=== PATIENT | male | born 1965 | race Caucasian/White ===

== ENCOUNTER → 2024-09-09 14:12 | Outpatient (REF) | payer BC, SELFPAY | LOC: RAD 14:12 | PROVIDERS: ATTENDING PHYSICIAN Surgery Vascular Surgery | DX: I73.9 Peripheral vascular disease, unspecified (principal) | CPT/HCPCS: 93922; 93925 ==

== ENCOUNTER 2024-12-08 12:00 | Emergency (ER) | payer BC, SELFPAY ==
[2024-12-08 12:01] VITALS: BP 129/85
--- NOTE | 2024-12-08 12:47 | ED.GENMED ---
History of Present Illness
General
Chief Complaint: Abdominal Pain
Source: patient
Exam Limitations: none
Time Seen by Provider: 12/08/24 12:43
History of Present Illness
History of Present Illness:
See MDM
Past History
Past History
ED Past Medical History: CVA, HTN, Hypercholesterolemia and IDDM
ED Past Surgical History: None
Social History
Tobacco: Smoker
Alcohol: None
Drug: None
Personal:
Living: with family
Employment: Employed
Family History
Family History: Hypertension
Phy Exam
Physical Exam
Physical Exam:
See MDM
Course
Orders/Labs/Results
Orders:
Orders
12/08/24 12:05
Scrotum US [US Scrotum] Urgent
Comment:
Reason For Exam: pain
12/08/24 12:46
CT Abd/pelvis W Iv Cont Urgent
Comment:
Reason For Exam: R groin pain
12/08/24 13:22
Complete Blood Count/With Diff Urgent
Comprehensive Metabolic Panel Urgent
Abnormal Lab Results
12/08/24
13:22
WBC 11.8 H 10^3/uL
(4.8-10.8)
RBC 4.39 L 10^6/uL
(4.70-6.10)
MCH 31.4 H pg
(27.0-31.0)
Abs Immat Gran (auto) 0.1 H 10^3/uL
(0-0.05)
Absolute Neuts (auto) 8.5 H 10^3/uL
(1.4-6.5)
Absolute Monos (auto) 1.2 H 10^3/uL
(0.1-0.6)
Lymphocytes % 16.1 L %
(20.5-51.1)
Monocytes % 9.7 H %
(1.7-9.3)
Carbon Dioxide 34 H mmol/L
(22-30)
Glucose 385 H mg/dl
(70-99)
Alkaline Phosphatase 158 H U/L
(38-126)
12/08/24 13:22
12/08/24 13:22
Vital Signs
Initial and Last Documented VS:
Initial Vital Signs
Temp Pulse Resp BP Pulse Ox
98.6 F 106 20 129/85 98
12/08/24 12:01 12/08/24 12:01 12/08/24 12:01 12/08/24 12:01 12/08/24 12:01
Last Documented Vital Signs
Temp Pulse Resp BP Pulse Ox
98.6 F 106 20 129/85 98
12/08/24 12:01 12/08/24 12:01 12/08/24 12:01 12/08/24 12:01 12/08/24 12:01
MDM/Problems Addressed
Differential Diagnosis Includes:
HPI and MDM Narrative:
59-year-old male presenting with right groin pain. It appears that this been going on for about 8 weeks. Certain positions when he lays down makes it better or worse. He denies urinary symptoms or issues with defecation. Given duration of
symptoms, will obtain scrotal ultrasound and CT. There is concern for epididymitis versus inguinal hernia
Physical exam
General: Well appearing and non-toxic
HEENT: protecting airway
Neck: appears supple
CV: No evidence of cyanosis
Resp: No accessory muscle use
Abd: Non-distended. Very mild right groin tenderness. No rebound. No palpable hernia
: Mild tenderness to right epididymis. Cremasteric reflex intact. No edema or erythema noted
Extremities: No deformities
Neuro: alert
Psych: Normal affect
Skin: Intact
Problems Addressed including Acute and Chronic Conditions affecting care:
1. Right groin pain
Acuity: acute
Prognosis: stable
Details: Given duration of symptoms, will obtain ultrasound to rule out epididymitis and will obtain CT to rule out kidney stone versus inguinal hernia
Updates
Ultrasound negative. Patient hyperglycemic but has a history of diabetes. No evidence of DKA. CT concerning for metastatic pancreatic cancer. I had a long discussion with the patient and . Patient indicates that he cannot get an MRI due to
metal in his body. Case discussed with oncology who indicated that he may not need an MRI. He may just need a liver biopsy. Discussed the importance of follow-up PCP and better sugar control and calling oncology
Differential Diagnosis (but not limited to): Epididymitis, inguinal hernia, kidney stone
Testing considered: Abdominal x-ray
Drug therapy (if applicable): OTC meds, please see d/c instruction regarding Rx drugs
Amount and/or Complexity of Data Reviewed
Clinical info obtained from: Patient
External data reviewed: N/A
Labs I independently reviewed (but not limited to): Hyperglycemia
Radiology: The CT scan was personally and independently reviewed. In addition, official CT report reviewed.
Pulse Ox: not hypoxic
EKG independently reviewed: N/A
Political Director: N/A
Critical Care: N/A
Risk of Complication:
Social Determinants of health: Good social support
Discussed with other providers: Oncology
Escalation of Care includes Admit/Obs: After being observed in the Emergency Department, pt stable for discharge.
Occasional wrong word or 'sound a like' substitutions may have occurred due to the inherent limitations of voice recognition software. Read the chart carefully and recognize, using context, where substitutions have occurred.
*Critical Care Note
Total Time (30-74mins, 75-104mins- exclusive of procedures): Not Applicable
ED Attending Note
-
Portions of this chart may have been created with voice recognition software.� Occasional wrong word or��sound alike� substitutions may have occurred due to the inherent limitations of voice recognition software.
Discharge Plan
Departure
Patient Disposition: Home (Routine Discharge)
Date of Disposition: 12/08/24
Time of Disposition: 19:11
Patient with high blood pressure during this ER visit?: No
Discharge Problem:
Pancreatic mass
Prescriptions:
No Action
ezetimibe 10 MG tablet
10 mg PO DAILY
aspirin 81 MG tablet,delayed release (DR/EC)
81 mg PO DAILY Qty: 30 0RF
cholecalciferol (vitamin D3) 1,000 UNITS tablet
1,000 units PO DAILY Qty: 30 0RF
simvastatin 40 MG tablet
40 mg PO DAILY
insulin aspart U-100 [Novolog FlexPen U-100 Insulin] 300 UNITS/3 ML insulin pen
12 units SC AC
acetaminophen 325 MG tablet
650 mg PO Q4HPRN PRN (Reason: mild pain/LUZ/temp> 100.4F) 0RF
doxycycline hyclate 100 MG capsule
100 mg PO Q12 Qty: 28 0RF
metronidazole 500 MG tablet
500 mg PO Q8H Qty: 42 0RF
lisinopril 10 MG tablet
10 mg PO DAILY Qty: 30 0RF
mupirocin 1 APPLIC ointment
0 applic topical DAILY Qty: 1 0RF
insulin glargine [Lantus Solostar U-100 Insulin] 300 UNITS/3 ML insulin pen
24 units SC HS Qty: 1 0RF
collagenase clostridium histo. [Santyl] 1 APPLIC ointment
1 applic S DAILY Qty: 30 0RF
cyclobenzaprine 10 MG tablet
10 mg PO TID PRN (Reason: spasm) 5 Days Qty: 15 0RF
Referrals:
Vitor Dillon DO [Family Provider] -
Danielito Wells MD [Active] -
Activity Restrictions/Additional Instructions:
As we discussed, the CT is concerning for metastatic pancreatic cancer. Oncology is aware. Please call them for expedited follow-up at [phone].
Until then, please call your primary care doctor tomorrow for expedited follow-up as well.
Interventions
Interventions:
*Risk Screen - Suicide Last Done: 12/08/24 12:01
*General Assessment Last Done: 12/08/24 12:01
*Neglect/Abuse Screening Last Done: 12/08/24 14:50
*ED- Fall Risk Assessment Last Done: 12/08/24 13:44
*ED COVID-19 Vaccine History Last Done: 12/08/24 13:44
[id number] Assessment Last Done: 12/08/24 13:45
Discharge Date and Time
Print Language: MALAGASY
[2024-12-08 13:37] LABS: % Basophils 0.4 % (0-2); % Eosinophils 1.7 % (0-6); % Immature Granulocytes 0.4 % (0-0.5); % Lymphocytes 16.1 % (20.5-51.1); % Monocytes 9.7 % (1.7-9.3); % Neutrophils 71.7 % (42.2-75.2); Absolute Basophils 0.1 10^3/uL (0-0.2); Absolute Eosinophils 0.2 10^3/uL (0-0.7); Absolute Immature Granulocytes 0.1 10^3/uL (0-0.05); Absolute Lymphocytes 1.9 10^3/uL (1.2-3.4); Absolute Monocytes 1.2 10^3/uL (0.1-0.6); Absolute Neutrophils 8.5 10^3/uL (1.4-6.5); Hematocrit 39.2 % (39.0-52.0); Hemoglobin 13.8 g/dL (13.0-18.0); Mean Corp Hgb Conc. 35.2 g/dL (33.0-37.0); Mean Corpuscular Hgb 31.4 pg (27.0-31.0); Mean Corpuscular Volume 89.3 fL (80.0-94.0); Mean Platelet Volume 9.8 fL (7.4-10.4); Nucleated Red Blood Cells % 0 % (-); Platelet Count 263 10^3/uL (130-400); Red Blood Cell Count 4.39 10^6/uL (4.70-6.10); Red Cell Dist. Width 11.9 % (11.5-14.5); White Blood Cell Count 11.8 10^3/uL (4.8-10.8)
[2024-12-08 13:44] VITALS: BMI 27.5
[2024-12-08 13:48] LABS: ALT (SGPT) 49 U/L (0-50); AST (SGOT) 28 U/L (17-59); Albumin 3.6 g/dl (3.5-5.0); Alkaline Phosphatase 158 U/L (38-126); Blood Urea Nitrogen 15 mg/dl (9-20); Calcium 9.4 mg/dl (8.4-10.2); Carbon Dioxide 34 mmol/L (22-30); Chloride 98 mmol/L (98-107); Estimated Creatinine Clearance 120 ml/min; Glucose 385 mg/dl (70-99); Potassium 4.4 mmol/L (3.5-5.1); Sodium 137 mmol/L (135-145); Total Bilirubin 0.6 mg/dl (0.2-1.3); Total Protein 6.7 g/dl (6.3-8.2); eGFR > 60.00
[2024-12-08 20:11] VITALS: BP 130/86
== END 2024-12-08 20:12 | disposition home or self-care (01) ==
LOC: EMR 12:00
PROVIDERS: EMERGENCY PHYSICIAN Student in an Organized Health Care Education/Training Program; FAMILY PHYSICIAN Family Medicine
DX: K86.9 Disease of pancreas, unspecified (principal); F17.200 Nicotine dependence, unspecified, uncomplicated; I10 Essential (primary) hypertension
CPT/HCPCS: 99285; 74177; 76870; 80053; 85025; 93976; Q9967

== ENCOUNTER 2024-12-28 06:55 | Outpatient (REF) | payer BC, SELFPAY ==
[2024-12-28] VITALS (9 sets, daily range): BP systolic 73–121; BP diastolic 66–74
[2024-12-28 07:24] LABS: % Basophils 0.5 % (0-2); % Eosinophils 2.6 % (0-6); % Immature Granulocytes 0.4 % (0-0.5); % Lymphocytes 21.1 % (20.5-51.1); % Monocytes 9.6 % (1.7-9.3); % Neutrophils 65.8 % (42.2-75.2); Absolute Basophils 0.1 10^3/uL (0-0.2); Absolute Eosinophils 0.3 10^3/uL (0-0.7); Absolute Immature Granulocytes 0.1 10^3/uL (0-0.05); Absolute Lymphocytes 2.6 10^3/uL (1.2-3.4); Absolute Monocytes 1.2 10^3/uL (0.1-0.6); Hematocrit 40.8 % (39.0-52.0); Hemoglobin 13.9 g/dL (13.0-18.0); Mean Corp Hgb Conc. 34.1 g/dL (33.0-37.0); Mean Corpuscular Hgb 31.4 pg (27.0-31.0); Mean Corpuscular Volume 92.1 fL (80.0-94.0); Mean Platelet Volume 9.6 fL (7.4-10.4); Nucleated Red Blood Cells % 0 % (-); Platelet Count 210 10^3/uL (130-400); Red Blood Cell Count 4.43 10^6/uL (4.70-6.10); White Blood Cell Count 12.2 10^3/uL (4.8-10.8)
[2024-12-28 07:30] LABS: INR 1.02; PT 13.7 Sec (11.4-14.6)
[2024-12-28 07:34] LABS: ALT (SGPT) 141 U/L (0-50); AST (SGOT) 89 U/L (17-59); Albumin 4.2 g/dl (3.5-5.0); Alkaline Phosphatase 189 U/L (38-126); Blood Urea Nitrogen 17 mg/dl (9-20); Calcium 9.9 mg/dl (8.4-10.2); Carbon Dioxide 33 mmol/L (22-30); Chloride 104 mmol/L (98-107); Glucose 70 mg/dl (70-99); Potassium 4.5 mmol/L (3.5-5.1); Sodium 145 mmol/L (135-145); Total Bilirubin 0.7 mg/dl (0.2-1.3); Total Protein 7.9 g/dl (6.3-8.2); eGFR > 60.00
[2024-12-28 07:58] LABS: Glucose - Point of Care 75 mg/dl (70-99)
[2024-12-28 09:27] LABS: Glucose - Point of Care 66 mg/dl (70-99)
[2024-12-28 09:45] LABS: Glucose - Point of Care 73 mg/dl (70-99)
== END 2024-12-28 12:00 | disposition home or self-care (01) ==
LOC: RADI 06:55
PROVIDERS: ATTENDING PHYSICIAN Internal Medicine Hematology & Oncology; FAMILY PHYSICIAN Family Medicine; OTHER PHYSICIAN Physician Assistant
DX: C78.7 Secondary malignant neoplasm of liver and intrahepatic bile duct (principal); C25.1 Malignant neoplasm of body of pancreas; Z01.812 Encounter for preprocedural laboratory examination; Z01.818 Encounter for other preprocedural examination
CPT/HCPCS: 88307; 36415; 47000; 76942; 80053; 82962; 85025; 85610; 88333; 88334; 88341; 88342; 99152; 99153

== ENCOUNTER 2025-01-12 06:03 | Day surgery (SDC) | payer BC, SELFPAY ==
[2025-01-12 06:54] VITALS: BMI 26.2
[2025-01-12 06:55] VITALS: BP 132/74
[2025-01-12] MEDS: TYLENOL 1000 MG PO (07:02)
[2025-01-12] MEDS: NEURONTIN 300 MG PO (07:02)
[2025-01-12] MEDS: HEPARIN 5000 UNITS SC (07:04)
[2025-01-12] MEDS: NORMOSOL-R/PLASMALYTE-A 1000 IV (07:05)
[2025-01-12 07:07] LABS: Glucose - Point of Care 250 mg/dl (70-99)
[2025-01-12 08:12] VITALS: BP 116/65
[2025-01-12 08:15] VITALS: BP 104/63
--- NOTE | 2025-01-12 08:18 | OR.RPT ---
Operative Report
Operative Report
Date of Operation: January 12, 2025
Preoperative Diagnosis: Pancreas Ca of head - C250
Postoperative Diagnosis: Same
Surgeon: Tyrell Vivar M.D.
Operation: Insertion of right single-lumen port via subclavian vein
Port Insertion - [id number]: Local with IV sedation
Estimated Blood Loss: Minimal
Drains: None
Specimen: none
Complications: None
Procedure:
The patient was taken to the operating room and placed in the usual supine position. After adequate IV sedation was obtained patient's right neck and chest were prepped and draped in the usual sterile fashion. Approximately 3 cm transverse incision
was made 4 cm below the midclavicular line after injecting the area with 1% lidocaine. An incision was made with a #15 blade, and a subcutaneous pocket was created using electrocautery. The right subclavian vein was accessed using a large-bore
needle through the same incision. The guidewire was passed through the needle into the SVC and confirmed on the fluoroscopy. Over the guidewire, the subcutaneous tissue was dilated, and the angio-sheath was placed in the SVC. The port was placed in
the subcutaneous pocket, and the catheter was passed through the angio-sheath into the SVC and confirmed on fluoroscopy. The ports were aspirated and flushed without any resistance. After obtaining adequate hemostasis, the incision was closed in
multiple layers. The subcutaneous tissue was reapproximated with # 3-0 Vicryl, and the skin was reapproximated with #4-0 Monocryl in a running subcuticular fashion. The patient tolerated the procedure well. The final instrument, needle, and sponge
counts were correct. The patient was transferred to the recovery room.
[2025-01-12 08:22] LABS: Glucose - Point of Care 227 mg/dl (70-99)
[2025-01-12] MEDS: NOVOLOG vial 2 UNITS SC (08:27)
[2025-01-12 08:30] VITALS: BP 111/68
[2025-01-12 08:45] VITALS: BP 114/65
[2025-01-12 08:55] VITALS: BP 119/69
== END 2025-01-12 10:15 | disposition home or self-care (01) ==
LOC: SDS 06:03
PROVIDERS: ATTENDING PHYSICIAN Surgery
DX: C25.0 Malignant neoplasm of head of pancreas (principal)
CPT/HCPCS: 36561; 71045; 76000; 82962; C1788

== ENCOUNTER → 2025-04-06 09:30 | Outpatient (REF) | payer BC, SELFPAY | LOC: RAD 09:30 | PROVIDERS: ATTENDING PHYSICIAN Registered Nurse | DX: C25.1 Malignant neoplasm of body of pancreas (principal) | CPT/HCPCS: 71260; 74177; Q9967 ==

== ENCOUNTER → 2025-07-16 12:39 | Outpatient (REF) | payer BC, SELFPAY | LOC: RAD 12:39 | PROVIDERS: ATTENDING PHYSICIAN Registered Nurse; FAMILY PHYSICIAN Family Medicine | DX: C25.1 Malignant neoplasm of body of pancreas (principal); R53.81 Other malaise; D64.9 Anemia, unspecified | CPT/HCPCS: 71260; 74177; Q9967 ==